=== PATIENT | male | born 1985 | race Caucasian/White ===

== ENCOUNTER 2017-06-14 13:41 | Emergency (ER) | payer OTHER ==
[~2017-06-14 13:41] MED LIST: FLU60SYR30 IM ONLY
--- NOTE | 2017-06-14 13:48 | ER Report ---
History and Physical Time Seen By MD: 13:47 HPI/ROS CHIEF COMPLAINT: Weakness, difficulty speaking, visual changes HISTORY OF PRESENT ILLNESS: This is a 32-year-old male. He was sent to the ER by Dr. Thorpe's office today. He was sent here because he is having weakness, trouble speaking, trouble walking. It appears that the patient had what sounds like a migraine on Monday. He had visual field changes with a flashing lights that expanded to fill his right vision which then subsided followed via a pressure-like headache. He also had some numbness in his right arm as well. That all resolved. He then had a similar event on Monday where he had the same type of preceding symptoms of visual changes on the right side followed by numbness and weakness on his whole right side of his body.. Today about one hour prior to going to his primary care doctor's office, he had the same visual changes although this was his entire vision left and right, with associated trouble speaking with slurred speech and confusion noted by his , and weakness and numbness over his whole body both left and right sides. He did have a headache with this as well. When he arrived here in the emergency department, the symptoms had mostly resolved, he still had a little bit of tingling in his extremities both left and right, but by the time I examined him after the stat CT scan, the symptoms were completely gone as well. He does have a continued pressure and throbbing type headache. No nausea or vomiting. No vision changes remain. No history of migraine headaches prior to these events. There are a few people who've had strokes in their older years and his family, and his dad does work with MRI machines, and has had an MRI that showed some white spots throughout his brain, but there is no history of neurodegenerative disease as far as the patient is aware. REVIEW OF SYSTEMS: Constitutional: No fever or chills. Eyes: No vision changes. ENT: No sore throat. No congestion. No hearing changes. Cardiovascular: No chest pain. No palpitations. Respiratory: No cough. No shortness of breath. Gastrointestinal: No abdominal pain. No change in bowel movements. Genitourinary: No dysuria. No frequency Musculoskeletal: No musculoskeletal pain. Skin: No rashes. Neurological: As above. Allergies: Coded Allergies: No Known Drug Allergies (Unverified , 06/14/17) Home Meds Reported Medications Sumatriptan Succinate (SUMATRIPTAN SUCCINATE) 100 Mg Tablet 06/14/17 Reviewed Nurses Notes: Yes Constitutional Vital Sign - Last 24 Hours 06/14/17 06/14/17 06/14/17 06/14/17 13:52 13:54 13:56 14:01 Temp 98.1 Pulse 97 99 95 Resp 20 B/P (MAP) 132/84 (100) 132/84 Pulse Ox 95 95 95 O2 Delivery Room Air 06/14/17 06/14/17 06/14/17 06/14/17 14:06 14:21 14:26 14:31 Pulse 98 92 87 95 Resp 7 10 9 Pulse Ox 95 91 95 94 06/14/17 06/14/17 06/14/17 06/14/17 14:36 14:41 14:46 14:51 Pulse 92 90 104 99 Resp 8 10 12 20 B/P (MAP) 123/87 (99) Pulse Ox 94 06/14/17 06/14/17 06/14/17 06/14/17 14:56 15:00 15:01 15:36 Pulse 98 96 98 Resp 13 8 11 B/P (MAP) 134/74 (94) Pulse Ox 95 06/14/17 06/14/17 06/14/17 06/14/17 15:40 15:41 15:46 15:51 Pulse 85 86 B/P (MAP) 135/78 (97) Pulse Ox 92 94 94 06/14/17 06/14/17 06/14/17 06/14/17 15:56 16:00 16:01 16:06 Pulse 88 89 93 Resp 9 26 11 B/P (MAP) 107/69 (82) Pulse Ox 93 96 96 06/14/17 06/14/17 06/14/17 06/14/17 16:11 16:16 16:21 16:26 Pulse 100 94 84 Resp 10 16 14 11 Pulse Ox 93 96 96 94 06/14/17 06/14/17 06/14/17 06/14/17 16:31 16:36 16:40 16:51 Pulse 91 98 85 Resp 15 11 22 B/P (MAP) 104/84 (91) Pulse Ox 97 97 93 06/14/17 06/14/17 06/14/17 06/14/17 16:56 17:01 17:06 17:11 Pulse 79 93 97 Resp 10 10 Pulse Ox 94 94 93 06/14/17 06/14/17 17:16 17:21 Pulse 87 Resp 12 11 Pulse Ox 95 96 Physical Exam NIH stroke scale was performed immediately after the patient returned back from CT scan. NIH stroke scale score to zero with no deficits present. General Appearance: The patient is alert. No acute distress. Non-toxic in appearance. Eyes: Pupils are equal, round. Reactive to light. No pallor, injection or icterus. Extraocular movements are intact. No nystagmus. Normal visual bautista by direct confrontation. ENT: Mucous membranes are moist. Normal oral mucosa. Posterior oropharynx is normal. Neck: Supple and non tender. Respiratory: Lungs are clear to auscultation. Cardiovascular: Regular rate and rhythm. No murmurs, gallops or rubs. Normal capillary refill. No edema. No carotid bruits. Gastrointestinal: Abdomen is soft and non tender. Nondistended. Normal active bowel sounds. No costovertebral angle tenderness with percussion. Neurological: Alert and oriented x3. Cranial nerves with eye exam as noted above. Tongue is midline and palate is symmetric with elevation. No facial droop and normal facial sensation. Normal shoulder shrug. He has normal sensation and motor function in his upper and lower extremities bilaterally. Reflexes are equal. Normal finger to nose testing and normal heel to miller testing. Skin: Warm and dry. No rashes. Musculoskeletal: Extremities are nontender. Full range of motion. No tenderness in palpation of the cervical, thoracic and lumbar spine. DIFFERENTIAL DIAGNOSIS: After history and physical exam, differential diagnosis was considered for focal neurologic deficits, that do appear as though they're migraine-like patterns, but 3 different patterns over the course of the last 6 days. With significant difference today. Consider atypical migraine patterns, neurodegenerative disease, masses, other central phenomenon, less likely to be TIA or CVA given the fact that her most recent problem would've had to cover several different arterial distributions of the brain. Medical Decision Making Data Points Result Diagram: 06/14/17 1422 06/14/17 1422 Laboratory Hematology Test 06/14/17 14:22 Red Blood Count 5.21 M/uL (4.00-5.60) Mean Corpuscular Volume 90.9 fL (80.0-96.0) Mean Corpuscular Hemoglobin 32.2 pg (26.0-33.0) Mean Corpuscular Hemoglobin Concent 35.5 g/dL (32.0-36.0) Red Cell Distribution Width 13.7 % (11.5-14.5) Mean Platelet Volume 7.6 fL (7.2-11.1) Neutrophils (%) (Auto) 42.5 % (39.4-72.5) Lymphocytes (%) (Auto) 44.0 % (17.6-49.6) Monocytes (%) (Auto) 9.4 % (4.1-12.4) Eosinophils (%) (Auto) 3.7 % (0.4-6.7) Basophils (%) (Auto) 0.4 % (0.3-1.4) Nucleated RBC Relative Count (auto) 0.1 /100WBC Neutrophils # (Auto) 2.9 K/uL (2.0-7.4) Lymphocytes # (Auto) 3.0 K/uL (1.3-3.6) Monocytes # (Auto) 0.6 K/uL (0.3-1.0) Eosinophils # (Auto) 0.2 K/uL (0.0-0.5) Basophils # (Auto) 0.0 K/uL (0.0-0.1) Nucleated RBC Absolute Count (auto) 0.01 K/uL Prothrombin Time 13.4 seconds (12.0-14.4) Prothromb Time International Ratio 1.02 Activated Partial Thromboplast Time 26 seconds (23-35) Sodium Level 140 mmol/L (137-145) Potassium Level 4.2 mmol/L (3.5-5.0) Chloride Level 102 mmol/L (98-107) Carbon Dioxide Level 26 mmol/L (22-30) Blood Urea Nitrogen 16 mg/dl (9-21) Creatinine 1.00 mg/dl (0.66-1.25) Glomerular Filtration Rate Calc > 60.0 Random Glucose 88 mg/dl (75-110) Calcium Level 9.4 mg/dl (8.4-10.2) Total Bilirubin 0.7 mg/dl (0.2-1.3) Aspartate Amino Transf (AST/SGOT) 26 U/L (0-35) Alanine Aminotransferase (ALT/SGPT) 34 U/L (0-56) Alkaline Phosphatase 40 U/L (0-126) Troponin I < 0.012 ng/ml Total Protein 7.9 gm/dl (6.3-8.2) Albumin 4.6 g/dl (3.5-5.0) Chemistry Test 06/14/17 14:22 White Blood Count 6.7 k/uL (4.5-11.0) Red Blood Count 5.21 M/uL (4.00-5.60) Hemoglobin 16.8 g/dL (14.0-18.0) Hematocrit 47.3 % (42.0-52.0) Mean Corpuscular Volume 90.9 fL (80.0-96.0) Mean Corpuscular Hemoglobin 32.2 pg (26.0-33.0) Mean Corpuscular Hemoglobin Concent 35.5 g/dL (32.0-36.0) Red Cell Distribution Width 13.7 % (11.5-14.5) Platelet Count 251 K/uL (150-450) Mean Platelet Volume 7.6 fL (7.2-11.1) Neutrophils (%) (Auto) 42.5 % (39.4-72.5) Lymphocytes (%) (Auto) 44.0 % (17.6-49.6) Monocytes (%) (Auto) 9.4 % (4.1-12.4) Eosinophils (%) (Auto) 3.7 % (0.4-6.7) Basophils (%) (Auto) 0.4 % (0.3-1.4) Nucleated RBC Relative Count (auto) 0.1 /100WBC Neutrophils # (Auto) 2.9 K/uL (2.0-7.4) Lymphocytes # (Auto) 3.0 K/uL (1.3-3.6) Monocytes # (Auto) 0.6 K/uL (0.3-1.0) Eosinophils # (Auto) 0.2 K/uL (0.0-0.5) Basophils # (Auto) 0.0 K/uL (0.0-0.1) Nucleated RBC Absolute Count (auto) 0.01 K/uL Prothrombin Time 13.4 seconds (12.0-14.4) Prothromb Time International Ratio 1.02 Activated Partial Thromboplast Time 26 seconds (23-35) Glomerular Filtration Rate Calc > 60.0 Calcium Level 9.4 mg/dl (8.4-10.2) Total Bilirubin 0.7 mg/dl (0.2-1.3) Aspartate Amino Transf (AST/SGOT) 26 U/L (0-35) Alanine Aminotransferase (ALT/SGPT) 34 U/L (0-56) Alkaline Phosphatase 40 U/L (0-126) Troponin I < 0.012 ng/ml Total Protein 7.9 gm/dl (6.3-8.2) Albumin 4.6 g/dl (3.5-5.0) Coagulation Test 06/14/17 14:22 Prothrombin Time 13.4 seconds Prothromb Time International Ratio 1.02 Activated Partial Thromboplast Time 26 seconds EKG/Imaging EKG Interpretation 12 lead EKG: Rhythm: normal sinus rhythm, rate 89 [place]: normal QRS: normal ST segments: normal Imaging Exam type: CHEST SINGLE AP History: weakness and speech problems Comparison: October 30, 2014. Findings: The lungs are free of acute effusions, infiltrates or edema. The cardiac silhouette is normal in size. The trachea is in midline. IMPRESSION: 1. No acute cardiopulmonary process is seen Report Dictated By: Emy Johnson MD at 06/14/2017 2:26 PM EXAMINATION: CT HEAD WITHOUT CONTRAST COMPARISON: None available HISTORY: weakness and speech problems PROCEDURE: Noncontrast CT from the vertex through the skull base. One of the following dose optimization techniques was utilized in the performance of this exam: Automated exposure control; adjustment of the mA and/or kV according to the patient's size; or use of an iterative reconstruction technique. Specific details can be referenced in the facility's radiology CT exam operational policy. FINDINGS: Brain volume: Age-appropriate volume. Hemorrhage/extra-axial fluid: No intracranial hemorrhage or extra-axial fluid collection. Mass effect/midline shift/edema: None. Ischemia: Fitzgerald-white differentiation is preserved. Ventricles and basal cisterns: Ventricle size is within normal limits. Basal cisterns are open. Posterior fossa: Negative. Vessels: Negative. Calvarium, skull base, and scalp: Negative. Visualized sinuses and orbits: Visualized paranasal sinuses are clear. Visualized globes are unremarkable. IMPRESSION: Negative age-appropriate noncontrast head CT. Report Dictated By: Tung Michele MD at 06/14/2017 2:12 PM Examination: MR brain without contrast History: Weakness, vision change, speech alteration Comparison: Head CT same day Technique: Multiplane MR imaging was performed through the brain without contrast. Findings: Diffusion: None Ventricles: Normal Midline shift: None Extraaxial fluid: None. Midline craniocervical structures: Normal Parenchyma: Solitary left frontal deep white matter high signal focus, axial flair image 11. Vascular flow voids: Normal Orbits and paranasal sinuses: Normal Impression: 1. No acute finding. 2. Solitary nonspecific left frontal deep white matter high signal focus of indeterminate etiology and of doubtful clinical significance. Such findings can be seen in the setting of migraine disorders. 3. Otherwise normal brain MR. Report Dictated By: Gurinder Malone MD at 06/14/2017 3:53 PM ED Course/Re-evaluation Clinical Indication for ER IV: IV Access ED Course Head CT scan negative. NIH stroke scale 0. Labs and chest x-ray and EKG negative. MRI done, one small white matter light spot on left frontal lobe, non- specific; exam negative for neurodegenerative and CVA. Discussed with the neurologist substation engineer at [facility]. We both felt this was likely migraine. Fits the pattern of Classic Migraine more than any other. Discussed this with the patient and his . Called and gave a report to [facility] who sent him here for evaluation. Conservative measures. No triptans for now. Try other abortive therapies and consider prophylaxis if continuing to be a problem. Follow-up with Neurology as an outpatient. Decision to Disposition Date: Jun 14, 2017 Decision to Disposition Time: 17:13 Depart Departure Latest Vital Signs Vital Signs Date Time Temp Pulse Resp B/P (MAP) Pulse Ox O2 Delivery O2 Flow Rate FiO2 06/14/17 17:21 11 96 06/14/17 17:16 87 06/14/17 16:40 104/84 (91) 06/14/17 13:54 98.1 Room Air Impression: Primary Impression: Classic migraine with aura Condition: Improved Disposition: HOME OR SELF-CARE Patient Instructions: Migraine Headache (ED) Additional Instructions: The headache and neurologic changes today appear to be classic migraine. Because of the worsening with the Sumatriptan, we recommend against using this or similar medicines until you follow-up with neurology. Discuss referral with [facility]. Call for an appointment with them in the next 5-10 days. For future headaches/symptoms, try taking Excedrin with Caffeine, followed by Ibuprofen 200mg tablets, 4 tablets every 8 hours. Problem Qualifiers Primary Impression: Classic migraine with aura Status migrainosus presence: without status migrainosus Intractability: not intractable Qualified Codes: G43.109 - Migraine with aura, not intractable, without status migrainosus JAMES ROSE MD Jun 14, 2017 13:48
--- NOTE | 2017-06-14 14:19 | RADIOLOGY IMAGING REPORT ---
[place] [facility] [place] NAME: Cipriano Neri : 1985 MR: [id number] V: [id number] EXAM DATE: ORDERING PHYSICIAN: JAMES ROSE TECHNOLOGIST: Location: [facility] - [place] Patient: Cipriano Neri : 1985 Visit/Account:[id number] Date of Sevice: 06/14/2017 EXAMINATION: CT HEAD WITHOUT CONTRAST COMPARISON: None available HISTORY: weakness and speech problems PROCEDURE: Noncontrast CT from the vertex through the skull base. One of the following dose optimizat ion techniques was utilized in the performance of this exam: Automated exposure control; adjustment o f the mA and/or kV according to the patient's size; or use of an iterative reconstruction technique. Specific details can be referenced in the facility's radiology CT exam operational policy. FINDINGS: Brain volume: Age-appropriate volume. Hemorrhage/extra-axial fluid: No intracranial hemorrhage or extra-axial fluid collection. Mass effect/midline shift/edema: None. Ischemia: Fitzgerald-white differentiation is preserved. Ventricles and basal cisterns: Ventricle size is within normal limits. Basal cisterns are open. Posterior fossa: Negative. Vessels: Negative. Calvarium, skull base, and scalp: Negative. Visualized sinuses and orbits: Visualized paranasal sinuses are clear. Visualized globes are unremark able. IMPRESSION: Negative age-appropriate noncontrast head CT. Report Dictated By: Tung Michele MD at 06/14/2017 2:12 PM Report E-Signed By: Tung Michele MD at 06/14/2017 2:16 PM WSN:[id number]
--- NOTE | 2017-06-14 14:21 | EKG ---
FACILITY: [facility] PATIENT NAME: QAMAR MORTON : [id number] MR: [id number] V: [id number] EXAM DATE: ORDERING PHYSICIAN: JAMES ROSE TECHNOLOGIST: YESI Test Reason : TINGLING Blood Pressure : / mmHG Vent. Rate : 089 BPM Atrial Rate : 089 BPM P-R Int : 144 ms QRS Dur : 106 ms QT Int : 356 ms P-R-T Axes : 072 -25 065 degrees QTc Int : 433 ms Normal sinus rhythm with sinus arrhythmia Incomplete right bundle branch block Borderline ECG No previous ECGs available Confirmed by WALT HENNESSY ([id number]) on 06/14/2017 5:32:20 PM Referred By: MILTON Confirmed By:WALT HENNESSY
--- NOTE | 2017-06-14 14:32 | RADIOLOGY IMAGING REPORT ---
FACILITY: [facility] PATIENT NAME: Cipriano Neri : 1985 MR: [id number] V: [id number] EXAM DATE: ORDERING PHYSICIAN: JAMES ROSE TECHNOLOGIST: Location: [facility] [place] Patient: Cipriano Neri : 1985 Visit/Account:[id number] Date of Sevice: 06/14/2017 Exam type: CHEST SINGLE AP History: weakness and speech problems Comparison: October 30, 2014. Findings: The lungs are free of acute effusions, infiltrates or edema. The cardiac silhouette is normal in siz e. The trachea is in midline. IMPRESSION: 1. No acute cardiopulmonary process is seen Report Dictated By: Emy Johnson MD at 06/14/2017 2:26 PM Report E-Signed By: Emy Johnson MD at 06/14/2017 2:27 PM WSN:[email or web address]
[2017-06-14 14:33] LABS: PLATELET COUNT, AUTOMATED 251 K/uL (150-450)
[2017-06-14 14:45] LABS: INR 1.02
[2017-06-14] MEDS ORDERED: SUMA100T33 (14:50)
[2017-06-14] MEDS ORDERED: ACETAMINOPHEN 500 MG TAB PO ONE (14:50)
--- NOTE | 2017-06-14 16:03 | RADIOLOGY IMAGING REPORT ---
FACILITY: [facility] PATIENT NAME: Cipriano Neri : 1985 MR: [id number] V: [id number] EXAM DATE: ORDERING PHYSICIAN: JAMES ROSE TECHNOLOGIST: Location: [facility] - [place] Patient: Cipriano Neri : 1985 Visit/Account:[id number] Date of Sevice: 06/14/2017 Examination: MR brain without contrast History: Weakness, vision change, speech alteration Comparison: Head CT same day Technique: Multiplane MR imaging was performed through the brain without contrast. Findings: Diffusion: None Ventricles: Normal Midline shift: None Extraaxial fluid: None. Midline craniocervical structures: Normal Parenchyma: Solitary left frontal deep white matter high signal focus, axial flair image 11. Vascular flow voids: Normal Orbits and paranasal sinuses: Normal Impression: 1. No acute finding. 2. Solitary nonspecific left frontal deep white matter high signal focus of indeterminate etiology an d of doubtful clinical significance. Such findings can be seen in the setting of migraine disorders. 3. Otherwise normal brain MR. Report Dictated By: Gurinder Malone MD at 06/14/2017 3:53 PM Report E-Signed By: Gurinder Malone MD at 06/14/2017 3:59 PM WSN:[id number]
[2017-06-14 16:40] VITALS: BP 104/84
== END 2017-06-14 17:25 | disposition home or self-care (01) ==
LOC: ER 13:48
DX: G43.109 Migraine with aura, not intractable, without status migrainosus (principal)
CPT/HCPCS: 70450; 70551; 71045; 82040; 82247; 82310; 82374; 82435; 82565; 82947; 84075; 84132; 84155; 84295; 84450; 84460; 84484; 84520; 85025; 85610; 85730; 93005; 99284

== ENCOUNTER → 2017-08-11 | Outpatient (REF) ==
[~2017-08-11] MED LIST changes: +SUMA100T33
--- NOTE | 2017-08-11 12:47 | RADIOLOGY IMAGING REPORT ---
FACILITY: [facility] PATIENT NAME: Cipriano Neri : 1985 MR: [id number] V: [id number] EXAM DATE: ORDERING PHYSICIAN: SOLIS DOMINGUEZ TECHNOLOGIST: [place] [facility] [place]: Cipriano Neri : 1985 Visit/Account:[id number] Date of Sevice: 08/11/2017 CHEST, 1 view HISTORY: Work physical requirement COMPARISON: 06/14/2017 FINDINGS: Heart size is normal. Normal size thoracic aorta. Mediastinum and hamida are normal. Lungs are clear of infiltrate and atelectasis. There is no pneumothorax or pleural effusion. There are a few prominent endplate osteophytes in the lower thoracic spine. IMPRESSION: No radiographic evidence of an acute or chronic cardiopulmonary process. Report Dictated By: Marylou Oakley MD at 08/11/2017 12:42 PM Report E-Signed By: Marylou Oakley MD at 08/11/2017 12:43 PM WSN:[email or web address]
== END ==
LOC: RAD 09:53
PROVIDERS: ATTEND Physician Assistant Medical
DX: Z02.79 Encounter for issue of other medical certificate (principal)
CPT/HCPCS: 71045